=== PATIENT | male | born 1965 | race Caucasian/White ===

== ENCOUNTER 2016-12-01 07:00 | Day surgery (SDC) | payer OTHER ==
[~2016-12-01] VITALS: Ht 182.9 cm; Wt 113.4 kg
[~2016-12-01 07:00] MED LIST: 0.9% Sodium Chloride 1,000 ML IV SCH; ASPI-973 PO; CARV40CP PO; CETI10CA PO; INSU100V7 SUBQ; LAMO100T PO; LOSA100T29 PO; MULT-1018 PO; NITR0.4T6 SL; Sodium Chloride LOK Flush 10 mL Syringe IV PRN; fentaNYL-PF 50 mCg/mL 2 mL Inj IVPUSH PRN
[2016-12-01 07:30] VITALS: BP 128/82; PULSE 73; RESP 14; O2SAT 98
[2016-12-01 08:11] VITALS: BP 127/77; PULSE 73; RESP 14; O2SAT 93
[2016-12-01 08:21] VITALS: BP 111/78; PULSE 73; RESP 14; O2SAT 95
--- NOTE | 2016-12-01 08:26 | ENDO ---
[address] [address] ENDOSCOPY PROCEDURE PATIENT: JAX IRAHETA : 1965 MR#: [id number] ADMIT: 12/01/2016 JOB ID: [id number] PROCEDURE: Colonoscopy. PREOPERATIVE DIAGNOSIS(ES): Colorectal cancer screening. POSTOP: Normal colonoscopy. ANESTHESIA: Fentanyl 100 mcg, Versed 4 mg IV administered. COMPLICATIONS: None. BLOOD LOSS: Minimal. DESCRIPTION OF PROCEDURE: After risks and benefits were explained to the patient, informed consent was obtained. After anesthesia administered, colonoscope was inserted per rectum to cecum, and mucosa carefully examined. Prep of the patient was excellent. After the procedure was done, the scope was withdrawn and the procedure terminated. FINDINGS: Upon inspection of the anus, no masses, hemorrhoids, ulcers, fissures that were seen. Throughout the entire examination, there are no polyps, masses, or lesions. Retroflexion was normal. IMPRESSION: Normal colonoscopy. RECOMMENDATIONS: Repeat colonoscopy in 10 years for colorectal cancer screening.
[2016-12-01 08:33] VITALS: BP 109/75; PULSE 73; RESP 14; O2SAT 96
[2016-12-01 08:38] VITALS: BP 125/79; PULSE 79; RESP 16; O2SAT 96
== END 2016-12-01 23:59 | disposition home or self-care (01) ==
LOC: END 07:00
PROVIDERS: ATTEND Internal Medicine Gastroenterology
DX: Z12.11 Encounter for screening for malignant neoplasm of colon (principal); Z86.19 Personal history of other infectious and parasitic diseases; E11.9 Type 2 diabetes mellitus without complications; I10 Essential (primary) hypertension; I48.91 Unspecified atrial fibrillation; Z87.74 Personal history of (corrected) congenital malformations of heart and circulatory system; I45.2 Bifascicular block; Z79.82 Long term (current) use of aspirin; Z79.4 Long term (current) use of insulin; Q25.6 Stenosis of pulmonary artery
CPT/HCPCS: G0121; G0500; J2250; J3010; J7030